=== PATIENT | female | born 1950 | race Caucasian/White ===

== ENCOUNTER 2019-04-19 21:48 | Observation (INO) ==
[2019-04-20] MEDS ORDERED: Naloxone 0.4 MG/ML INJ IVP PRN (03:37)
[2019-04-20] MEDS ORDERED: Dextrose Gel 15 GM/37.5 ML TUBE PO PRN ×2 (03:40)
[2019-04-20] MEDS ORDERED: *HR* Dextrose 50 % in Water (Syg) 50 ML SYRINGE IVP PRN (03:40)
[2019-04-20] MEDS ORDERED: D5% in Water 1,000 ML IVC PRN (03:40)
[2019-04-20] MEDS ORDERED: Ondansetron 4 MG/2 ML VIAL IVP PRN (03:45)
[2019-04-20] MEDS ORDERED: Nitroglycerin 0.4 MG TAB.SUBL SL PRN (03:45)
[2019-04-20 04:15] LABS: Basophils % 0.4 %; Eosinophils # 0.2 K/mcL (0.0-0.6); Eosinophils % 1.4 %; Hematocrit 42.6 % (35.3-44.9); Hemoglobin 13.4 g/dL (11.5-15.4); Immature Granulocytes % 0.7 % (0-4); Lymphocytes # 2.7 K/mcL (0.6-4.6); Lymphocytes % 25.9 %; Mean Corpuscular HGB Conc 31.5 g/dL (31.6-35.5); Mean Corpuscular Hemoglobin 29.5 pg (28.0-33.3); Mean Corpuscular Volume 93.8 fL (83.0-100.0); Mean Platelet Volume 10.3 fL (9.4-12.4); Monocytes # 0.8 K/mcL (0.0-1.3); Monocytes % 7.1 %; Neutrophils # 6.8 K/mcL (1.6-8.9); Platelet Count 303 K/mcL (140-400); Red Blood Count 4.54 M/mcL (3.82-4.97); Segmented Neutrophils % 64.5 %; White Blood Count 10.5 K/mcL (4.3-11.1)
[2019-04-20 04:22] LABS: Prothrombin Time 11.3 Seconds (9.4-12.1)
[2019-04-20 04:25] LABS: Activated Partial Thrombo Time 28.8 Seconds (26.0-36.0)
[2019-04-20 04:32] LABS: Alanine Aminotransferase 21 Units/L (7-52); Albumin 3.5 g/dL (3.5-5.7); Albumin/Globulin Ratio 1.3 (1.1-2.2); Alkaline Phosphatase 126 Units/L (34-104); Aspartate Amino Transferase 21 Units/L (13-39); BUN/Creatinine Ratio 23 (6-26); Bilirubin,Total 0.3 mg/dL (0.3-1.0); Blood Urea Nitrogen 28 mg/dL (8-23); Calcium 8.9 mg/dL (8.6-10.3); Carbon Dioxide 28 mEq/L (23-29); Chloride 104 mEq/L (98-107); Cholesterol 158 mg/dL (< 200); Globulin 2.7 g/dL (2.4-3.5); Glucose 175 mg/dL (70-105); HDL Cholesterol 40 mg/dL (40-59); LDL Cholesterol,Calculated 76 mg/dL (0-99); Osmolality,Calculated 298 (280-300); Potassium 4.3 mEq/L (3.5-5.1); Sodium 139 mEq/L (136-145); Total Protein 6.2 g/dL (6.4-8.9); Triglycerides 210 mg/dL (< 150); Troponin I < 0.03 ng/mL (< 0.04); eGFR For African Americans 54 (> 60); eGFR For Non-African Americans 45 (> 60)
[2019-04-20] MEDS ORDERED: Furosemide 20 MG TABLET PO PRN (04:47)
[2019-04-20] MEDS: *HR* Heparin 5,000 UNIT/ML VIAL SQ SCH ×2 (06:03→14:09)
[2019-04-20] MEDS: Insulin LISPRO 300 UNITS/3 ML VIAL SQ SCH ×2 (06:03→11:55)
[2019-04-20] MEDS ORDERED: Regadenoson 0.4 MG/5 ML SYRINGE IVP ONE (06:17)
[2019-04-20] MEDS ORDERED: Aspirin 81 MG TAB.CHEW PO SCH (09:00)
[2019-04-20] MEDS ORDERED: amLODIPine 5 MG TABLET PO SCH (09:00)
[2019-04-20] MEDS ORDERED: FLUoxetine 20 MG CAPSULE PO SCH (09:00)
[2019-04-20 09:24] LABS: Estimated Average Glucose 355 mg/dl
[2019-04-20] MEDS ORDERED: Budesonide/Formoterol 160/4.5 1 PUFF INH IH SCH (10:00)
[2019-04-20] MEDS: Albuterol 2.5 MG/3 ML NEBULIZER IH SCH ×3 (10:41→15:43)
[2019-04-20 10:58] VITALS: BP 122/85
== END 2019-04-20 15:59 | disposition home or self-care (01) ==
LOC: 3BNU → SUATTDRO 04-20 03:08
PROVIDERS: ADMIT Internal Medicine Nephrology; ATTEND Family Medicine

== ENCOUNTER 2019-05-27 10:57 | Observation (INO) ==
--- NOTE | 2019-05-27 15:25 | Internal Med History&Physical ---
<Tony Finch - Last Filed: 05/27/19 16:31> Date of Encounter: 05/27/19 Time of Encounter: 16:15 Internal Medicine - H&P: HPI History of present illness: Ms. Blackwell is a 69 year old female Internal Medicine - H&P: Meds Advair 500-50 Diskus 1 puff IH BID 04/20/19 [History] Albuterol Sulfate 2.5 aerosol IH QID 04/20/19 [History] Alendronate Sodium [Fosamax] 35 mg PO QWEEK 04/20/19 [History] Aspirin 81 mg PO DAILY 04/20/19 [History] Crestor 10 mg PO DAILY 04/20/19 [History] Fluoxetine 20 mg PO DAILY 04/20/19 [History] Humulin 70/30 Vial 40 units SQ BID 04/20/19 [History] Insulin NPH 40 units SQ TID 04/20/19 [History] Lasix 20 mg PO DAILY PRN 04/20/19 [History] amLODIPine 20 mg PO DAILY 04/20/19 [History] Allergy/AdvReac Type Severity Reaction Status Date / Time Penicillins Allergy Hives Verified 01/05/17 04:01 All Systems PM: A 10-system review of systems was performed and is negative for pertinent findings except as documented above in the HPI. - Constitutional Vitals: Temp Pulse Resp BP Pulse Ox 98.1 F 79 16 125/69 94 05/27/19 15:48 05/27/19 15:48 05/27/19 15:48 05/27/19 15:48 05/27/19 15:48 - Time Spent With Patient Total time spent is greater than 50% in coordination of care (as documented) at patient's floor/unit and/or counseling patient: - Attending Attestation I saw evaluated and examined this patient and reviewed past medical, family, social histories and objective data including labs and my medical decision- making was reviewed with the Resident Physician, Cliff Hernández. I agree with the documented findings, disposition and treatment plan as described except to any changes set forth below. We independently had [id number] contact with the patient. Patient with history of hypertension, diabetes who presented to the ER at [facility] with complaints of chest pain. Patient has been having mild cough and she also recently lifted a heavy cooking vessel and symptoms began soon after. She describes the pain as left-sided on her anterior chest wall and radiating down her left arm. He did not get any worse with activity but was only relieved after she received nitroglycerin in the ER. She previously had been hospitalized here 1 month back with similar complaints of chest pain. Workup was negative and she underwent cardiac stress test which was negative for ischemia. She was suspected of having musculoskeletal chest pain and was discharged home. She was hospitalized at [facility] last week for h yperglycemia and was treated with IV insulin initially. She was then discharged on insulin and metformin. Presently she has some mild discomfort in her chest but most of her pain has subsided. On exam, her heart sounds are normal, breath sounds are normal. Abdomen is soft, nontender. Patient does have severe anterior chest wall tenderness on the left side. She describes this tenderness is similar to the pain that she has been having. Will observe the patient for atypical chest pain. Trend troponins. EKG was normal and showed normal sinus rhythm. Chest x-ray reportedly normal according to report sent over here. We will obtain echocardiogram. Pain is most likely musculoskeletal/costochondritis related. We will treat symptomatically. However pain was relieved with nitroglycerin and patient does have comorbidities including hypertension and diabetes. Will consult cardiology to evaluate patient and see if she will be candidate for left heart catheterization given her recurrent episodes of chest pain. For her diabetes, will place patient on subcutaneous insulin and diabetic diet for now. Keep nothing by mouth after midnight for cardiac evaluation. <Cliff Hernández - Last Filed: 05/27/19 18:58> Date of Encounter: 05/27/19 Internal Medicine - H&P: HPI Chief complaint: chest pain Admitted From: Emergency Dept History of present illness: Ms. Blackwell is a 69 year old female who initially presented to [place] ED with complaints of chest pain. States the chest pain was sudden onset and located in her left chest. Rated it as a 10 out of 10. Reports radiation of the pain into her left arm. Reports concomitant shortness of breath but denies any nausea, diaphoresis, headaches, vision changes, numbness, or tingling. Vital signs from [place] ED as follows: Temperature 90.8 Respiratory rate 18 Pulse 84 Blood pressure 130/65 SpO2 97% on room air EKG was obtained in the ED which demonstrated normal sinus rhythm with a rate of 78. No ischemic changes were noted. A chest x-ray was obtained which was reported to be negative for acute abnormality. Initial troponin was less than 0.03. It is noted that the patient has a past medical history of type 2 diabetes, hypertension, hyperlipidemia, and depression. She was recently admitted in our facility approximately 1 month ago for similar chest pain symptoms. During that time she underwent a nuclear stress test which ultimately was negative. She was also recently admitted in the [place] ICU with hyperglycemia during which her hemoglobin A1c was noted to be 12.4. The decision was made to admit to [facility] for further cardiac workup. Patient seen and examined at bedside. Currently rates the chest pain 2 out of 10 at this time. Denies any recent illnesses aside from those mentioned above. Denies any fever, chills, abdominal pain, nausea, or vomiting. She denies any outpatient dictations or sensation of skipped beats. Reports chest pain is worsened with cough. Past Med Surg Social Fam HX - Past Medical History Attestation: Yes The following information was validated with the patient. Source: patient, old records reviewed, nursing notes reviewed Medical history: diabetes, hyperlipidemia, hypertension Psychiatric history: depression - Past Surgical History Surgical History: cholecystectomy, hysterectomy - Social History Smoking Status: Never smoker Smokeless Tobacco Status: No Alcohol use: none Drug use: none - Family History Father Hx Family Cardiac Disorders: Yes Mother Hx Family Endocrine Disorder: Yes All Systems PM: A 10-system review of systems was performed and is negative for pertinent findings except as documented above in the HPI. - Constitutional Constitutional: no chills, no fever(s) - EENT Eyes: no blurry vision, no change in vision Ears: no decreased hearing, no tinnitus Nose, mouth and throat: no sinus pain, no sinus pressure - Cardiovascular Cardiovascular ROS IM: as per HPI, no edema, no lightheadedness - Respiratory Respiratory: no cough, no dyspnea on exertion, no wheezing, no chest congestion, no excessive phlegm production - Gastrointestinal Gastrointestinal: no abdominal pain, no nausea, no vomiting - Genitourinary Genitourinary: no difficulty urinating, no dysuria, no hematuria - Musculoskeletal Musculoskeletal ROS IM: no numbness, no tingling - Integumentary Integumentary IM: no new lesions, no non-healing lesions - Neurological Neurological ROS: no dizziness, no numbness, no tingling, no weakness - Hematologic/Lymphatic Hematologic/Lymphatic: no easy bleeding, no easy bruising - Constitutional General appearance: Present: cooperative, A&O X 3, pleasant, no acute distress, answers questions appropriately Exam: Constitutional: Well-developed female in no acute distress Head: Normocephalic, atraumatic Eyes: PERRL, EOMI, conjunctiva pink, sclera anicteric Neck: Supple, trachea midline, Lungs: Clear to auscultation bilaterally. Nonlabored breathing. No wheezes, rales, or rhonchi noted. Cardiac: RRR. +s1 +s2 No murmurs, clicks, or rubs noted. GI: Abdomen soft, nontender, nondistended. Normoactive bowel sounds Extremities: Warm, radial pulses palpable and symmetrical. No cyanosis, pedal edema, or calf tenderness. Neuro: Alert and oriented 3. No focal deficits. Normal speech. Skin: Warm, dry, and intact. Internal Med - H&P Results - EKG Data -: EKG Interpreted by Myself EKG shows normal: sinus rhythm, axis, QRS complexes, ST-T waves Rate: normal - Assessment and Plan (1) Chest pain Current Visit: Yes Status: Acute Assessment and plan: Presented with complaints of chest pain Improved with nitroglycerin at [place] ED EKG from the ED demonstrated no ischemic changes with normal sinus rhythm at rate of 78 Initial troponin from [place] ED less than 0.03 Patient had nuclear stress test performed at this facility on 04/20/19 which demonstrated no ischemia or infarct on the perfusion study with LVEF greater than 70%. Plan: While the chest pain does appear to be musculoskeletal in nature, patient does have significant comorbidities including hypertension, hyperlipidemia, and diabetes. The pain was also relieved with nitroglycerin. Continue 81 mg aspirin daily Continue home statin Trend troponins Repeat EKG in a.m. Obtain echocardiogram Consult cardiology for further evaluation and recommendations Qualifiers: Chest pain type: unspecified Qualified Code(s): R07.9 - Chest pain, unspecified (2) Hyperlipidemia Current Visit: Yes Status: Chronic Assessment and plan: Continue home statin Qualifiers: Hyperlipidemia type: unspecified Qualified Code(s): E78.5 - Hyperlipidemia, unspecified (3) Hypertension Current Visit: Yes Status: Chronic Assessment and plan: Currently controlled at 125/69 Continue home antihypertensives Qualifiers: Hypertension type: essential hypertension Qualified Code(s): I10 - Essential (primary) hypertension (4) Type 2 diabetes mellitus Current Visit: Yes Status: Chronic Assessment and plan: ACHS Accu-Cheks and sliding scale insulin Diabetic and cardiac diet Qualifiers: Diabetes mellitus longterm insulin use: with longterm use Diabetes mellitus complication status: without complication Qualified Code(s): E11.9 - Type 2 diabetes mellitus without complications; Z79.4 - MCFP (current) use of insulin (5) DVT prophylaxis Current Visit: No Status: Acute Assessment and plan: SQ Heparin - Time Spent With Patient Total time spent is greater than 50% in coordination of care (as documented) at patient's floor/unit and/or counseling patient:
[2019-05-27] MEDS ORDERED: Naloxone 0.4 MG/ML INJ IVP PRN (16:12)
[2019-05-27] MEDS ORDERED: *HR* Dextrose 50 % in Water (Syg) 50 ML SYRINGE IVP PRN (16:33)
[2019-05-27] MEDS ORDERED: D5% in Water 1,000 ML IVC PRN (16:33)
[2019-05-27] MEDS ORDERED: Dextrose Gel 15 GM/37.5 ML TUBE PO PRN ×2 (16:33)
[2019-05-27] MEDS ORDERED: Acetaminophen 325 MG TABLET PO PRN (18:59)
[2019-05-27] MEDS ORDERED: Insulin LISPRO 300 UNITS/3 ML VIAL SQ SCH (21:00)
[2019-05-27] MEDS: *HR* Heparin 5,000 UNIT/ML VIAL SQ SCH (21:16)
[2019-05-28 02:40] LABS: Basophils % 0.5 %; Eosinophils # 0.1 K/mcL (0.0-0.6); Eosinophils % 1.8 %; Hemoglobin 12.5 g/dL (11.5-15.4); Immature Granulocytes % 0.6 % (0-4); Lymphocytes % 30.5 %; Mean Corpuscular HGB Conc 31.3 g/dL (31.6-35.5); Mean Corpuscular Hemoglobin 29.7 pg (28.0-33.3); Mean Platelet Volume 10.3 fL (9.4-12.4); Monocytes # 0.9 K/mcL (0.0-1.3); Monocytes % 12.8 %; Neutrophils # 3.6 K/mcL (1.6-8.9); Platelet Count 295 K/mcL (140-400); Red Blood Count 4.21 M/mcL (3.82-4.97); Red Cell Distribution Width 13.1 % (11.5-14.5); Segmented Neutrophils % 53.8 %; White Blood Count 6.6 K/mcL (4.3-11.1)
[2019-05-28 02:50] LABS: Prothrombin Time 11.9 Seconds (9.4-12.1)
[2019-05-28 02:52] LABS: Chol/HDL Ratio 4.2 (0-4.9)
[2019-05-28 02:54] LABS: Calcium 9.2 mg/dL (8.6-10.3); Magnesium 2.1 mg/dL (1.6-2.6); Phosphorous 3.7 mg/dL (2.7-4.5); Potassium 4.8 mEq/L (3.5-5.1)
[2019-05-28] MEDS: *HR* Heparin 5,000 UNIT/ML VIAL SQ SCH ×2 (05:59→14:39)
[2019-05-28] MEDS: Insulin LISPRO 300 UNITS/3 ML VIAL SQ SCH ×3 (07:52→16:23)
[2019-05-28] MEDS ORDERED: FLUoxetine 20 MG CAPSULE PO SCH (09:00)
[2019-05-28] MEDS ORDERED: Aspirin 81 MG TAB.CHEW PO SCH (09:00)
--- NOTE | 2019-05-28 09:01 | Internal Med Progress Note ---
Hospitalist Progress Note - Encounter Date of Encounter: 05/28/19 Time of Encounter: 09:42 - Subjective Interval History: Patient reports that pain has resolved. However, all of last night and this morning, she has had a dry cough. She reports that she slept well last night despite cough. - Exam Vitals: Temp Pulse Resp BP Pulse Ox 98.4 F 74 16 118/76 94 05/28/19 07:30 05/28/19 07:30 05/28/19 07:30 05/28/19 07:30 05/28/19 07:30 Exam: GENERAL: alert, conversant. In no acute distress SKIN: no lesions, rashes, or cyanosis. EYES: anicteric, clear sclerae. Pupils equal and reactive to light bilaterally HENT: atraumatic, normocephalic, moist mucosa NECK: no carotid bruits heard. Supple CV: regular rate and rhythm. Normal S1 and S2. No murmurs, clicks, or gallops RESPIRATORY: clear to auscultation bilaterally. No wheezes, rhonchi, or rales. ABDOMEN: soft, nontender, slightly distended. Normal bowel sounds heard. EXTREMITIES: no edema. Peripheral pulses 2+/4 - Assessment and Plan (1) Chest pain Current Visit: Yes Status: Acute Assessment and Plan: Atypical chest pain. -Continue 81 mg ASA -Continue home statin -Troponins were trended and were negative x2 -Echocardiogram today showed LVEF of 60-65%, normal LV chamber size, wall thickness, and function -Cardiology recommends low-dose Imdur and outpatient follow-up, with possibility of [facility] as outpatient (2) Elevated serum creatinine Current Visit: Yes Status: Acute Assessment and Plan: Creatinine this morning was elevated at 1.43. -Patient is receiving IVF -Repeat BUN and creatinine; if normal, patient will be discharged today. (3) Hyperlipidemia Current Visit: Yes Status: Chronic Assessment and Plan: -Continue home statin (4) Hypertension Current Visit: Yes Status: Chronic Assessment and Plan: Currently well-controlled -currently holding losartan (5) Type 2 diabetes mellitus Current Visit: Yes Status: Chronic Assessment and Plan: -continue on accuchecks and sliding scale insulin -DM and cardiac diet (6) DVT prophylaxis Current Visit: No Status: Acute Assessment and Plan: -currently on subQ heparin - Time Spent with Patient Total time spent is greater than 50% in coordination of care (as documented) at patient's floor/unit and/or counseling patient: Internal Medicine: Result - Labs CBC & Chem 7: 05/28/19 02:04 05/28/19 16:57 Labs: Short CBC 05/28/19 Range/Units 02:04 WBC 6.6 (4.3-11.1) K/mcL Hgb 12.5 (11.5-15.4) g/dL Hct 40.0 (35.3-44.9) % Plt Count 295 (140-400) K/mcL Neutrophils # 3.6 (1.6-8.9) K/mcL BMP 05/28/19 02:04 Sodium 138 Potassium 4.8 Chloride 101 Carbon Dioxide 27 BUN 32 H Creatinine 1.43 H Glucose 320 H Calcium 9.2 Cardiac Enzymes 05/27/19 05/27/19 Range/Units 16:52 22:02 Troponin I < 0.03 < 0.03 (< 0.04) ng/mL - ABG Interpretation ABG results: PT/INR, D-dimer PT 11.9 Seconds (9.4-12.1) 05/28/19 02:04 Consult Discharge Plan - Plan Referrals: Meagan Hopkins MD [Primary Care Provider] - Prescriptions: Isosorbide MONOnitrate (24 HR) [Imdur] 30 mg PO DAILY 30 Days #30 tab.er.24h (1) Chest pain Qualifiers: Chest pain type: unspecified Qualified Code(s): R07.9 - Chest pain, unspecified (3) Hyperlipidemia Qualifiers: Hyperlipidemia type: unspecified Qualified Code(s): E78.5 - Hyperlipidemia, unspecified (4) Hypertension Qualifiers: Hypertension type: essential hypertension Qualified Code(s): I10 - Essential (primary) hypertension (5) Type 2 diabetes mellitus Qualifiers: Diabetes mellitus jail insulin use: with [employer] goods use Diabetes mellitus complication status: without complication Qualified Code(s): E11.9 - Type 2 diabetes mellitus without complications; Z79.4 - longterm (current) use of insulin
[2019-05-28] MEDS ORDERED: Tiotropium 18 MCG inhalation IH SCH (10:00)
[2019-05-28] MEDS ORDERED: 0.9 % Sodium Chloride 1,000 ML IVC SCH (10:00)
--- NOTE | 2019-05-28 10:36 | Cardiology Consult Note ---
Date of Encounter: 05/28/19 Time of Encounter: 09:00 Assessment and Plan (1) Chest pain Current Visit: Yes Status: Acute Troponins negative x2. States CP was sharp and radiated down her left arm occurring after lifting a heavy kitchen item, resolved with Nitro. Denies CP over night and at time of eval. Echo 04/20/19: LVEF 65%. Normal LV chamber size, wall thickness and function, normal RV structure and function, mild MR & TR Nuclear stress 04/20/19: negative for ischemia and infarct Given recent negative CV testing and atypical symptoms, will start low dose Imdur and arrange outpatient f/u. Can consider LHC in outpatient setting. Cardiology will sign off at this time, please re-consult as needed. Qualifiers: Chest pain type: unspecified Qualified Code(s): R07.9 - Chest pain, unspecified Discussion w patient/family: The assessment and plan as outlined above was discussed with the patient and/or family members who expressed understanding and agreement. All questions were answered. Thank you for involving us in the care of your patient. Please call with any questions. The above assessment and plan will be discussed with Dr. Reyna and I will make changes as necessary. History of Present Illness Consult date: 05/28/19 Consult reason: Angina History of present illness: Ms. Blackwell is a 69 year old female with PMH of HTN and DM who presented to the ER at [facility] with complaints of chest pain. Patient has been having mild cough and she also recently lifted a heavy cooking vessel and symptoms began soon after. She describes the pain as left-sided on her anterior chest wall and radiating down her left arm. He did not get any worse with activity but was only relieved after she received nitroglycerin in the ER. She previously had been hospitalized here 1 month back with similar complaints of chest pain, at that time her cardiac workup was negative. Denies any other episodes of CP recently. Reports she is chronically SOB for which she takes inhalers for at home. Reports she ambulates well with her walker. Past Med Surg Social Fam HX - Past Medical History Medical history: diabetes, hyperlipidemia, hypertension Psychiatric history: depression - Past Surgical History Surgical History: cholecystectomy, hysterectomy - Social History Smoking Status: Never smoker Smokeless Tobacco Status: No Alcohol use: none Drug use: none - Family History Father Hx Family Cardiac Disorders: Yes (CABG) Mother Hx Family Endocrine Disorder: Yes Medications and Allergies Advair 500-50 Diskus 1 puff IH BID 04/20/19 [History] Albuterol Sulfate 2.5 aerosol IH QID 04/20/19 [History] Alendronate Sodium [Fosamax] 35 mg PO QWEEK 04/20/19 [History] Aspirin 81 mg PO DAILY 04/20/19 [History] Crestor 10 mg PO DAILY 04/20/19 [History] Fluoxetine 20 mg PO DAILY 04/20/19 [History] Humulin 70/30 Vial 40 units SQ BID 04/20/19 [History] Insulin NPH 40 units SQ TID 04/20/19 [History] Lasix 20 mg PO DAILY PRN 04/20/19 [History] amLODIPine 20 mg PO DAILY 04/20/19 [History] Allergy/AdvReac Type Severity Reaction Status Date / Time Penicillins Allergy Hives Verified 01/05/17 04:01 All Systems Review: The remainder of the systems were reviewed and are negative - Cardiovascular Cardiovascular: as per HPI Physical Examination Vital Signs, Last 4 Hours Temp Pulse Resp BP Pulse Ox 05/28/19 07:30 98.4 F 74 16 118/76 94 General: Conversant, No Apparent Distress HEENT: Atraumatic, Normocephaly, Mucus Membranes Moist Neck: No JVD, Normal carotid pulses Cardiac: Reg Rate and Rhythm, Normal S1 and S2, No Murmur Lungs: Normal Breath Sounds, No Wheeze, Rales, Rhonchi Neuro: Alert and responsive, No focal deficits noted Abdomen: Soft, Non-Tender Skin: No rashes noted on visualized skin Musculoskeletal: No Chest Wall Tenderness Extremities: No Clubbing, No Cyanosis, No Edema, Normal Pulses Results 05/28/19 02:04 05/28/19 02:04 Lab Results 05/27/19 05/27/19 05/28/19 16:52 22:02 02:04 WBC 6.6 Hgb 12.5 Hct 40.0 Plt Count 295 INR Sodium Potassium Chloride Carbon Dioxide BUN Creatinine Glucose Calcium Magnesium Troponin I < 0.03 < 0.03 05/28/19 05/28/19 02:04 02:04 WBC Hgb Hct Plt Count INR 1.0 Sodium 138 Potassium 4.8 Chloride 101 Carbon Dioxide 27 BUN 32 H Creatinine 1.43 H Glucose 320 H Calcium 9.2 Magnesium 2.1 Troponin I - Imaging and Cardiology Stress Test: report reviewed Echo: report reviewed Other Results: 12hr tele reviewed: average HR 87, NSR, no events over night - EKG Interpretation EKG results cardiology: personally reviewed, normal ECG, no diagnostic ischemia Consult Discharge Plan - Plan Referrals: Meagan Hopkins MD [Primary Care Provider] -
[2019-05-28] MEDS ORDERED: Isosorbide MONOnitrate (24 HR) 30 MG TAB.ER.24H PO SCH (11:00)
[2019-05-28] MEDS ORDERED: Albuterol 2.5 MG/3 ML NEBULIZER IH PRN (14:16)
[2019-05-28] MEDS ORDERED: Gabapentin 300 MG CAPSULE PO SCH (15:00)
[2019-05-28] MEDS ORDERED: Loratadine 10 MG TABLET PO SCH (15:15)
[2019-05-28] MEDS ORDERED: amLODIPine 5 MG TABLET PO SCH (15:15)
[2019-05-28 16:21] VITALS: BP 129/81
[2019-05-28] MEDS ORDERED: Sucralfate 1 GM TABLET PO SCH (17:00)
[2019-05-28 17:41] LABS: BUN/Creatinine Ratio 27 (6-26); Blood Urea Nitrogen 34 mg/dL (8-23); eGFR For African Americans 52 (> 60); eGFR For Non-African Americans 43 (> 60)
--- NOTE | 2019-05-28 17:52 | Discharge Summary ---
<Rakel Carvajal - Last Filed: 05/28/19 18:39> - NOTES TO OUTPATIENT PROVIDER Notes to Outpatient Provider: Cardiology has added Imdur and would like to follow-up outpatient. Possible C as outpatient. Date of Encounter: 05/28/19 Time of Encounter: 17:50 - Discharge Diagnosis (1) Chest pain Priority: Primary Status: Acute Qualifiers: Chest pain type: unspecified Qualified Code(s): R07.9 - Chest pain, unspecified (2) Elevated serum creatinine Priority: Secondary Status: Acute (3) Hyperlipidemia Priority: Secondary Status: Chronic Qualifiers: Hyperlipidemia type: unspecified Qualified Code(s): E78.5 - Hyperlipidemia, unspecified (4) Hypertension Priority: Secondary Status: Chronic Qualifiers: Hypertension type: essential hypertension Qualified Code(s): I10 - Essential (primary) hypertension (5) Type 2 diabetes mellitus Priority: Secondary Status: Chronic Qualifiers: Diabetes mellitus ferry terminal agent insulin use: with care home use Diabetes mellitus complication status: without complication Qualified Code(s): E11.9 - Type 2 diabetes mellitus without complications; Z79.4 - intermediate teacher (current) use of insulin (6) DVT prophylaxis Priority: Secondary Status: Acute Hospital course: Ms. Blackwell is a 69 year old female who presented initially to [facility] with complaints of chest pain which was sudden onset and located in left chest and radiated into left arm. Pain was rated as 10 out of 10. Patient additionally reported shortness of breath but denied nausea, diaphoresis, headaches, vision changes, numbness, tingling. Pain improved with nitroglycerin. EKG in ED showed normal sinus rhythm with rate of 78 and no ischemic changes. Chest x-ray was negative for acute abnormality. Troponins 2 were less than 0.03. Nuclear stress test 1 month ago was negative. Echocardiogram showed EF of 60-65% and normal left ventricular chamber size, wall thickness and function. Cardiology recommended starting Imdur and possible outpatient left heart catheterization. Patient today reports the pain has resolved. However, all of last night and this morning, she has had a dry cough. Dry cough is likely from viral or allergic bronchitis. Patient is on Dulera, Ventolin, and BuSpar at home. Also of note, creatinine today was 1.43. Repeat creatinine level this afternoon was 1.24. Patient will be discharged today as creatinine level is improving. Discharge discussed with: patient Time spent discussing smoking cessation with patient: 3 to 10 minutes - Time Spent with Patient Total time spent providing and/or coordinating discharge services: Time spent: Less than 30 minutes - Discharge Medications Prescriptions: New Isosorbide MONOnitrate (24 HR) [Imdur] 30 mg PO DAILY 30 Days #30 tab.er.24h Isosorbide MONOnitrate (24 HR) [Imdur] 30 mg PO DAILY #0 tab.er.24h FLUoxetine HCl [Prozac] 20 mg PO DAILY capsule Continued amLODIPine [Norvasc] 5 mg PO DAILY Sucralfate [Carafate] 1 gm PO QID Mometasone/Formoterol [Dulera 200 Mcg/5 Mcg Inhaler] 2 puff IH BID Loratadine [Claritin] 10 mg PO DAILY Losartan Potassium [Cozaar] 100 mg PO DAILY Aspirin Enteric Coated [Aspirin EC] 81 mg PO DAILY Spironolactone [Aldactone] 50 mg PO DAILY Rosuvastatin Calcium [Crestor] 20 mg PO QPM Oxybutynin [Ditropan] 5 mg PO BID Multivitamin [One Daily Essential] 1 tab PO DAILY Insulin NPH Hum/Reg Insulin Hm [Novolin 70-30 100 Unit/ml Vial] 40 unit SQ TID Insulin Glargine,Hum.rec.anlog [Basaglar Kwikpen U-100] 45 unit SQ BID Gabapentin [Neurontin] 300 mg PO TID FLUoxetine HCl [Prozac] 20 mg PO DAILY Docusate [Colace] 100 mg PO DAILY Calcium Carbonate/Vitamin D3 [Oyster Shell Calcium-Vit D Tab] 1 tab PO BID Calcitriol [Rocaltrol] 0.25 mcg PO DAILY Buspirone HCl [Buspar] 10 mg PO DAILY Albuterol Sulfate [Ventolin Hfa] 2 puff IH Q4-6H PRN PRN Reason: Shortness Of Breath Albuterol Neb [Proventil Neb] 2.5 mg IH Q4H PRN PRN Reason: Shortness Of Breath Calcium Polycarbophil [Fiber Laxative] 625 mg PO TID Furosemide [Lasix] 20 mg PO DAILY Home Medications: Albuterol Neb [Proventil Neb] 2.5 mg IH Q4H PRN 05/28/19 [History] Albuterol Sulfate [Ventolin Hfa] 2 puff IH Q4-6H PRN 05/28/19 [History] Aspirin Enteric Coated [Aspirin EC] 81 mg PO DAILY 05/28/19 [History] Buspirone HCl [Buspar] 10 mg PO DAILY 05/28/19 [History] Calcitriol [Rocaltrol] 0.25 mcg PO DAILY 05/28/19 [History] Calcium Carbonate/Vitamin D3 [Oyster Shell Calcium-Vit D Tab] 1 tab PO BID 05/28/19 [History] Calcium Polycarbophil [Fiber Laxative] 625 mg PO TID 05/28/19 [History] Docusate [Colace] 100 mg PO DAILY 05/28/19 [History] FLUoxetine HCl [Prozac] 20 mg PO DAILY 05/28/19 [History] FLUoxetine HCl [Prozac] 20 mg PO DAILY capsule 05/28/19 [Rx] Furosemide [Lasix] 20 mg PO DAILY 05/28/19 [History] Gabapentin [Neurontin] 300 mg PO TID 05/28/19 [History] Insulin Glargine,Hum.rec.anlog [Basaglar Kwikpen U-100] 45 unit SQ BID 05/28/19 [History] Insulin NPH Hum/Reg Insulin Hm [Novolin 70-30 100 Unit/ml Vial] 40 unit SQ TID 05/28/19 [History] Isosorbide MONOnitrate (24 HR) [Imdur] 30 mg PO DAILY #0 tab.er.24h 05/28/19 [Rx] Isosorbide MONOnitrate (24 HR) [Imdur] 30 mg PO DAILY 30 Days #30 tab.er.24h 05/28/19 [Rx] Loratadine [Claritin] 10 mg PO DAILY 05/28/19 [History] Losartan Potassium [Cozaar] 100 mg PO DAILY 05/28/19 [History] Mometasone/Formoterol [Dulera 200 Mcg/5 Mcg Inhaler] 2 puff IH BID 05/28/19 [History] Multivitamin [One Daily Essential] 1 tab PO DAILY 05/28/19 [History] Oxybutynin [Ditropan] 5 mg PO BID 05/28/19 [History] Rosuvastatin Calcium [Crestor] 20 mg PO QPM 05/28/19 [History] Spironolactone [Aldactone] 50 mg PO DAILY 05/28/19 [History] Sucralfate [Carafate] 1 gm PO QID 05/28/19 [History] amLODIPine [Norvasc] 5 mg PO DAILY 05/28/19 [History] Allergies/Adverse Reactions: Allergy/AdvReac Type Severity Reaction Status Date / Time Penicillins Allergy Hives Verified 01/05/17 04:01 Date of admission: 05/27/19 12:53 Primary care physician: Meagan Hopkins MD Consults: 05/27/19 16:22 Consult to Cardiology [CONS] Routine Comment: Consulting Provider: [facility] [place] Reason for Consult: anginal type chest pain. Admitted approximately 1 month ago and stress test was normal. Call Completed: No Discharging clinician: Rakel Carvajal Anticipated date of discharge: 05/28/19 - Constitutional Vitals: Temp Pulse Resp BP Pulse Ox 98.7 F 83 16 129/81 93 05/28/19 16:17 05/28/19 16:17 05/28/19 16:17 05/28/19 16:17 05/28/19 16:17 General appearance: Present: cooperative, A&O X 3, pleasant, no acute distress, answers questions appropriately Exam: See above. - Head Head exam: Present: atraumatic, normal inspection, normocephalic - Eye Eye exam: Present: normal appearance, PERRL, sclera anicteric Pupils: Present: normal accommodation, PERRL - ENT ENT exam: Present: mucous membranes moist, normal exam - Neck Neck exam general surgery: Present: normal inspection, supple - Respiratory Respiratory exam: Present: CTAB. Absent: rales, rhonchi, wheezes - Cardiovascular Cardiovascular exam: Present: RRR, +S1, +S2. Absent: clicks, gallop, irregular rhythm - GI/Abdominal GI/Abdominal exam: Present: normal bowel sounds, soft. Absent: distended, tenderness - Extremities Exam Extremities exam: Present: normal capillary refill, normal inspection. Absent: calf tenderness, cyanotic, pedal edema, tenderness - Neurological Exam Neurological exam: Present: alert, no focal deficits - Psychiatric Psychiatric exam: Present: normal affect, normal mood - Skin Skin exam: Present: intact, normal color, warm - Patient Status Disposition: Home, Self-Care Condition: Good Functional capacity at discharge: independent ambulation Overall status at discharge: patient is back to baseline - Discharge Instructions Follow Up With: Meagan Hopkins MD [Primary Care Provider] - (please call and schedule follow up appt within 7-10 days ) - Diet and Activity Activity: increase activity as tolerated Diet: advance to your usual diet <Tony Finch - Last Filed: 05/28/19 18:53> Date of Encounter: 05/28/19 Time of Encounter: 09:25 - Discharge Diagnosis (1) Chest pain Status: Acute Qualifiers: Chest pain type: unspecified Qualified Code(s): R07.9 - Chest pain, unspecified (2) Hyperlipidemia Status: Chronic Qualifiers: Hyperlipidemia type: unspecified Qualified Code(s): E78.5 - Hyperlipidemia, unspecified (3) Hypertension Status: Chronic Qualifiers: Hypertension type: essential hypertension Qualified Code(s): I10 - Essential (primary) hypertension (4) Type 2 diabetes mellitus Status: Chronic Qualifiers: Diabetes mellitus care home insulin use: with care home use Diabetes mellitus complication status: without complication Qualified Code(s): E11.9 - Type 2 diabetes mellitus without complications; Z79.4 - intermediate teacher (current) use of insulin (5) DVT prophylaxis Status: Acute Hospital course: Ms. Blackwell is a 69 year old female - Time Spent with Patient Total time spent providing and/or coordinating discharge services: Date of admission: 05/27/19 12:53 Primary care physician: Meagan Hopkins MD Consults: 05/27/19 16:22 Consult to Cardiology [CONS] Routine Comment: Consulting Provider: [facility] [place] Reason for Consult: anginal type chest pain. Admitted approximately 1 month ago and stress test was normal. Call Completed: No - Constitutional Vitals: Temp Pulse Resp BP Pulse Ox 98.7 F 83 16 129/81 93 05/28/19 16:17 05/28/19 16:17 05/28/19 16:17 05/28/19 16:17 05/28/19 16:17 - Attending Attestation I saw evaluated and examined this patient and reviewed objective data including labs and my medical decision-making was reviewed with the Resident Physician. I agree with the documented findings, disposition and discharge plan as described except to any changes set forth below. We independently had [id number] contact with the patient. Patient with history of hypertension, hyperlipidemia and type 2 diabetes was hospitalized here with acute chest pain started and radiating down her left arm. However it was reproducible on examination suggesting musculoskeletal etiology. Patient had negative stress test recently. As such we trend her troponins which were normal. She was then evaluated by cardiology who recommended potential left heart catheterization as outpatient. She had an echocardiogram done today which showed normal ejection fraction of 60-65%. Cardiology did recommend that she be placed on Imdur and have outpatient follow- up for potential left heart catheterization. She did have mild elevation in her creatinine today to 1.43. She did receive IV fluids with improvement in her creatinine down to her baseline. She is stable to be discharged home at this time and will follow up with her primary care provider. She does have dry cough which could be exacerbating her chest wall pain. Most likely related to viral bronchitis. This can be managed symptomatically with [id number] antitussives and her inhalers. Time spent on discharge: 8 min
[2019-05-28] MEDS ORDERED: NON-FORMULARY MEDICATION 1 EACH EACH (Mometasone/Formoterol [Dulera 200 Mcg/5 Mcg Inhaler] IH SCH (21:00)
[2019-05-28] MEDS ORDERED: Budesonide/Formoterol 160/4.5 1 PUFF INH IH SCH (22:00)
== END 2019-05-28 19:12 | disposition home or self-care (01) ==
LOC: 3BNU → SUATTDRO 12:53
PROVIDERS: ADMIT Internal Medicine; ATTEND Internal Medicine

== ENCOUNTER 2019-06-16 22:20 | Observation (INO) ==
[2019-06-17] MEDS ORDERED: D5% in Water 1,000 ML IVC PRN (05:02)
[2019-06-17] MEDS ORDERED: Dextrose Gel 15 GM/37.5 ML TUBE PO PRN ×2 (05:02)
[2019-06-17] MEDS ORDERED: *HR* Dextrose 50 % in Water (Syg) 50 ML SYRINGE IVP PRN (05:02)
[2019-06-17] MEDS ORDERED: Nitroglycerin 0.4 MG TAB.SUBL SL PRN (05:37)
[2019-06-17] MEDS ORDERED: Morphine Sulfate 2 MG/ML SYRINGE IVP PRN (05:38)
[2019-06-17] MEDS ORDERED: *HR* Promethazine 25 MG/ML VIAL IVP PRN (05:40)
[2019-06-17] MEDS ORDERED: *HR* HYDROcodone/Acet 5/325 mg TABLET PO PRN (05:40)
[2019-06-17] MEDS ORDERED: Acetaminophen 325 MG TABLET PO PRN (05:40)
[2019-06-17] MEDS ORDERED: Naloxone 0.4 MG/ML INJ IVP PRN (05:40)
[2019-06-17 05:50] LABS: Basophils % 0.4 %; Eosinophils # 0.2 K/mcL (0.0-0.6); Eosinophils % 2.1 %; Hematocrit 39.9 % (35.3-44.9); Hemoglobin 12.1 g/dL (11.5-15.4); Immature Granulocytes % 0.5 % (0-4); Lymphocytes # 2.9 K/mcL (0.6-4.6); Lymphocytes % 27.8 %; Mean Corpuscular HGB Conc 30.3 g/dL (31.6-35.5); Mean Corpuscular Hemoglobin 29.7 pg (28.0-33.3); Mean Platelet Volume 10.1 fL (9.4-12.4); Monocytes # 0.9 K/mcL (0.0-1.3); Monocytes % 8.1 %; Neutrophils # 6.4 K/mcL (1.6-8.9); Platelet Count 325 K/mcL (140-400); Red Blood Count 4.07 M/mcL (3.82-4.97); Red Cell Distribution Width 13.2 % (11.5-14.5); Segmented Neutrophils % 61.1 %; White Blood Count 10.5 K/mcL (4.3-11.1)
[2019-06-17] MEDS ORDERED: Insulin LISPRO 300 UNITS/3 ML VIAL SQ SCH ×4 (06:00→21:00)
[2019-06-17 06:13] LABS: Troponin I < 0.03 ng/mL (< 0.04)
[2019-06-17 06:17] LABS: Alanine Aminotransferase 21 Units/L (7-52); Albumin 3.8 g/dL (3.5-5.7); Albumin/Globulin Ratio 1.4 (1.1-2.2); Alkaline Phosphatase 120 Units/L (34-104); Aspartate Amino Transferase 20 Units/L (13-39); BUN/Creatinine Ratio 29 (6-26); Bilirubin,Total 0.2 mg/dL (0.3-1.0); Blood Urea Nitrogen 36 mg/dL (8-23); Calcium 9.4 mg/dL (8.6-10.3); Carbon Dioxide 28 mEq/L (23-29); Chloride 105 mEq/L (98-107); Chol/HDL Ratio 3.7 (0-4.9); Cholesterol 159 mg/dL (< 200); Globulin 2.8 g/dL (2.4-3.5); Glucose 161 mg/dL (70-105); HDL Cholesterol 43 mg/dL (40-59); LDL Cholesterol,Calculated 75 mg/dL (0-99); Magnesium 1.9 mg/dL (1.6-2.6); Osmolality,Calculated 304 (280-300); Potassium 4.2 mEq/L (3.5-5.1); Sodium 141 mEq/L (136-145); Total Protein 6.6 g/dL (6.4-8.9); Triglycerides 207 mg/dL (< 150); eGFR For African Americans 52 (> 60); eGFR For Non-African Americans 43 (> 60)
[2019-06-17 06:23] LABS: Thyroid Stimulating Hormone 2.827 mcIU/mL (0.340-5.600)
[2019-06-17] MEDS: Insulin LISPRO 300 UNITS/3 ML VIAL SQ SCH ×2 (10:56→13:01)
[2019-06-17] MEDS: *HR* Heparin 5,000 UNIT/ML VIAL SQ SCH ×2 (13:01→21:37)
[2019-06-17] MEDS ORDERED: Albuterol 2.5 MG/3 ML NEBULIZER IH PRN (14:42)
[2019-06-17] MEDS ORDERED: Furosemide 20 MG TABLET PO PRN (14:42)
[2019-06-17] MEDS: Isosorbide MONOnitrate (24 HR) 30 MG TAB.ER.24H PO SCH (17:14)
[2019-06-17] MEDS: Gabapentin 300 MG CAPSULE PO SCH ×2 (17:14→21:37)
[2019-06-17] MEDS: Sucralfate 1 GM TABLET PO SCH ×2 (17:14→21:37)
[2019-06-17] MEDS: Budesonide/Formoterol 160/4.5 1 PUFF INH IH SCH (19:59)
[2019-06-18 05:09] LABS: Basophils % 0.3 %; Eosinophils # 0.1 K/mcL (0.0-0.6); Eosinophils % 1.3 %; Hematocrit 35.8 % (35.3-44.9); Hemoglobin 11.2 g/dL (11.5-15.4); Immature Granulocytes % 0.4 % (0-4); Lymphocytes # 2.3 K/mcL (0.6-4.6); Lymphocytes % 24.5 %; Mean Corpuscular HGB Conc 31.3 g/dL (31.6-35.5); Mean Corpuscular Hemoglobin 29.6 pg (28.0-33.3); Mean Corpuscular Volume 94.7 fL (83.0-100.0); Mean Platelet Volume 10.2 fL (9.4-12.4); Monocytes # 0.8 K/mcL (0.0-1.3); Monocytes % 8.4 %; Platelet Count 299 K/mcL (140-400); Red Blood Count 3.78 M/mcL (3.82-4.97); Red Cell Distribution Width 13.2 % (11.5-14.5); Segmented Neutrophils % 65.1 %; White Blood Count 9.2 K/mcL (4.3-11.1)
[2019-06-18] MEDS: *HR* Heparin 5,000 UNIT/ML VIAL SQ SCH ×2 (05:22→12:54)
[2019-06-18 05:29] LABS: Calcium 8.9 mg/dL (8.6-10.3); Potassium 4.7 mEq/L (3.5-5.1)
[2019-06-18 07:18] LABS: Estimated Average Glucose 263 mg/dl
[2019-06-18] MEDS: Sucralfate 1 GM TABLET PO SCH ×3 (08:43→16:29)
[2019-06-18] MEDS: Isosorbide MONOnitrate (24 HR) 30 MG TAB.ER.24H PO SCH (08:43)
[2019-06-18] MEDS: Gabapentin 300 MG CAPSULE PO SCH ×2 (08:43→16:29)
[2019-06-18] MEDS ORDERED: Cholecalciferol (D-3) 1,000 UNIT (25MCG) TABLET PO SCH ×2 (09:00)
[2019-06-18] MEDS ORDERED: FLUoxetine 20 MG CAPSULE PO SCH (09:00)
[2019-06-18] MEDS ORDERED: Aspirin Enteric Coated 81 MG Tablet PO SCH (09:00)
[2019-06-18] MEDS ORDERED: Multivit/Ca/Min/Fe/FA 1 TAB TABLET PO SCH (09:00)
[2019-06-18] MEDS ORDERED: amLODIPine 5 MG TABLET PO SCH (09:00)
[2019-06-18] MEDS ORDERED: Loratadine 10 MG TABLET PO SCH (09:00)
[2019-06-18] MEDS ORDERED: Insulin DETEMIR 100 UNIT/ML X5UNITS SQ SCH (09:00)
[2019-06-18] MEDS: Budesonide/Formoterol 160/4.5 1 PUFF INH IH SCH (10:57)
[2019-06-18] MEDS: Insulin LISPRO 300 UNITS/3 ML VIAL SQ SCH ×2 (12:55→17:22)
[2019-06-18] MEDS ORDERED: Verapamil 5 MG/2 ML VIAL ONE (14:46)
[2019-06-18] MEDS ORDERED: ISOVUE-370 200 ML INFUS..BTL ONE (14:47)
[2019-06-18] MEDS ORDERED: Heparin 1,000 UNITS/500 mL 500 ML ONE (14:47)
[2019-06-18] MEDS ORDERED: 0.9 % Sodium Chloride 1,000 ML ONE ×2 (14:47→14:55)
[2019-06-18] MEDS ORDERED: *HR* Heparin 10,000 UNIT/10 ML VIAL ONE (14:47)
[2019-06-18] MEDS ORDERED: Nitroglycerin 1,000 MCG/10 ML VIAL IV ONE (14:47)
[2019-06-18] MEDS ORDERED: *HR* FentaNYL (PF) 100 MCG/2 ML VIAL ONE (14:54)
[2019-06-18] MEDS ORDERED: *HR* Midazolam HCl 2 MG/2 ML VIAL ONE (14:54)
[2019-06-18 17:21] VITALS: BP 116/75
[2019-06-18] MEDS ORDERED: Insulin LISPRO 300 UNITS/3 ML VIAL SQ SCH (21:00)
== END 2019-06-18 18:40 | disposition home or self-care (01) ==
LOC: 2ANU → SUATTDRO 06-17 04:49
PROVIDERS: ADMIT Internal Medicine; ATTEND Family Medicine